=== PATIENT | male | born 1975 | race Caucasian/White ===

== ENCOUNTER → 2017-03-12 | Outpatient (CLI) | payer OTHER | LOC: M OUTALCOH 07:57 | PROVIDERS: ATTEND Psychiatry & Neurology Psychiatry | DX: F10.20 Alcohol dependence, uncomplicated (principal) ==

== ENCOUNTER 2017-04-03 09:00 | Outpatient (RCR) | payer OTHER | END 2017-04-04 | LOC: M OUTALCOH 09:00 | PROVIDERS: ATTEND Psychiatry & Neurology Psychiatry | DX: F10.20 Alcohol dependence, uncomplicated (principal) ==

== ENCOUNTER 2017-05-26 09:00 | Outpatient (RCR) | payer OTHER | END 2017-06-04 | LOC: M OUTALCOH 09:00 | PROVIDERS: ATTEND Psychiatry & Neurology Psychiatry | DX: F10.20 Alcohol dependence, uncomplicated (principal) ==

== ENCOUNTER 2017-06-05 10:37 | Outpatient (RCR) | payer OTHER, MEDICAID | END 2017-07-05 | LOC: M OUTALCOH 10:37 | DX: F10.20 Alcohol dependence, uncomplicated (principal) ==

== ENCOUNTER 2017-07-08 10:54 | Outpatient (RCR) | payer MEDICAID, OTHER | END 2017-08-05 | LOC: M OUTALCOH 10:54 | DX: F10.20 Alcohol dependence, uncomplicated (principal) ==

== ENCOUNTER 2017-08-11 15:42 | Outpatient (RCR) | payer MEDICAID | END 2017-09-02 | LOC: M OUTALCOH 15:42 | DX: F10.20 Alcohol dependence, uncomplicated (principal) ==

== ENCOUNTER 2017-09-08 16:00 | Outpatient (RCR) | payer MEDICAID, OTHER | END 2017-10-03 | LOC: M OUTALCOH 10-01 13:58 | DX: F10.20 Alcohol dependence, uncomplicated (principal) | CPT/HCPCS: 90834 ==

== ENCOUNTER 2017-10-15 16:00 | Outpatient (RCR) | payer MEDICAID | END 2017-11-02 | LOC: M OUTALCOH 16:00 | DX: F10.20 Alcohol dependence, uncomplicated (principal) ==

== ENCOUNTER → 2020-11-24 | Outpatient (CLI) | payer OTHER ==
--- NOTE | 2020-11-24 14:46 | REP ---
INDICATION: STRAIN OF MUSCLE TENDON OF LOWER BACK. COMPARISON: No comparison lumbar spine imaging.. TECHNIQUE: Sagittal and axial T1 and T2-weighted scans are acquired in the usual fashion with and without fat saturation. Sequences include spin echo, turbo spin-echo, and STIR imaging sequences. FINDINGS: Lumbar vertebral body heights are preserved. Cortical and medullary bone signal intensity are normal. Alignment is normal. There is no evidence of spondylolysis or spondylolisthesis. The tip of the conus medullaris is normal in position and appearance at L1. No extra spinal abnormality is observed. Axial and sagittal images taken at L1-2 show no abnormality. At L2-3 there is mild degenerative narrowing and desiccation in the disc. No focal disc protrusion is seen. No spinal stenosis or foraminal narrowing is observed. At L3-4, the disc is preserved in height and signal intensity. There is minimal diffuse disc bulging indenting the ventral margin of the thecal sac. No spinal stenosis is seen. There is bilateral foraminal disc bulging at 3 4. No nerve root compression is seen however.. At L4-5, there is minimal narrowing of the disc height. There is a small right foraminal disc protrusion producing mild right-sided foraminal narrowing. No spinal stenosis is seen. Mild right-sided neural foraminal narrowing is noted. At L5-S1, there is mild diffuse disc bulging and disc space narrowing. This effaces the ventral epidural fat but does not compress the thecal sac. Minimal facet hypertrophy is present bilaterally at L5-S1. IMPRESSION: Mild degenerative spondylosis changes. Small right foraminal disc protrusion at L4-5. Bilateral foraminal disc bulging at L3-4. <Electronically signed by Juan Daniel Zhao > 11/24/20 1029
== END ==
LOC: M RAD 12:58
PROVIDERS: ATTEND Physician Assistant
DX: S39.012A Strain of muscle, fascia and tendon of lower back, initial encounter (principal); X58.XXXA Exposure to other specified factors, initial encounter; Y92.89 Other specified places as the place of occurrence of the external cause; Y93.9 Activity, unspecified; Y99.9 Unspecified external cause status